=== PATIENT | female | born 1985 | race Caucasian/White ===

== ENCOUNTER → 2022-02-02 | Day surgery (SDC) | payer OTHER ==
[~2022-02-02] MED LIST: AUGMENTIN 875-1 EACH PO; BACTRIM DS TAB1 EACH PO; BACTROBAN OINT22 GM EXT; COLACE100 MG PO; HYDROCODONE-AC1 EACH PO; IBUPROFEN600 MG PO; IBUPROFEN800 MG PO; MEDROL4 MG PO
[2022-02-02 11:20] LABS: HEMOGLOBIN 13.1 gm/dl (12.3-15.3); RED BLOOD COUNT 4.7 M/UL (4.00-5.10)
== END | disposition home or self-care (01) ==
LOC: OR 10:26
PROVIDERS: Obstetrics & Gynecology
DX: O02.1 Missed abortion (principal); I10 Essential (primary) hypertension; E66.9 Obesity, unspecified; Z88.8 Allergy status to other drugs, medicaments and biological substances; Z72.0 Tobacco use
CPT/HCPCS: 36415; 81001; 85025; J0696; J1100; J1170; J1885; J2001; J2210; J2250; J2405; J2704; J3010; J7120